=== PATIENT | male | born 1980 | race African-American/Black ===

== ENCOUNTER 2018-03-17 13:59 | Emergency (ER) | payer MEDICAID ==
[~2018-03-17] VITALS: Ht 180.3 cm; Wt 92.5 kg
[2018-03-17] MEDS ORDERED: ONDANSETRON ODT 4 MG ONE (14:37)
[2018-03-17 14:39] LABS: MEAN CORPUSCULAR HEMOGLOBIN 33.5 pg (27.5-34.5); MEAN CORPUSCULAR HGB CONC 33.9 g/dL (33.2-36.2); MEAN CORPUSCULAR VOLUME 98.8 fL (81-97); MEAN PLATELET VOLUME 8.5 fL (7.4-10.4); PLATELET COUNT 210 x10^3/uL (130-400); RED BLOOD COUNT 4.24 x10^6/uL (4.38-5.82); RED CELL DISTRIBUTION WIDTH 13.6 % (9.4-14.8)
[2018-03-17 14:48] LABS: ALBUMIN 3.6 g/dL (3.4-5.0); ANION GAP 6 mmol/L (5-15); CALCIUM 8.4 mg/dL (8.5-10.1); CHLORIDE 106 mmol/L (98-107)
[2018-03-17 14:51] LABS: ALANINE AMINOTRANSFERASE 20 U/L (12-78); ALKALINE PHOSPHATASE 94 U/L (45-117); BILIRUBIN,TOTAL 0.4 mg/dL (0.2-1.0); CREATININE 1.24 mg/dL (0.7-1.3); TOTAL PROTEIN 7.7 g/dL (6.4-8.2)
[2018-03-17 15:00] LABS: BASOPHILS # (AUTO) 0.04 x10^3/uL (0-0.1); BASOPHILS % (AUTO) 1 % (0-1); EOSINOPHILS # (AUTO) 0.15 x10^3/uL (0-0.4); EOSINOPHILS % (AUTO) 2 % (1-7); LYMPHOCYTES # (AUTO) 1.53 x10^3/uL (1-3.4); LYMPHOCYTES % (AUTO) 16 % (22-44); MD SCAN; MONOCYTES # (AUTO) 0.62 x10^3/uL (0.2-0.8); MONOCYTES % (AUTO) 7 % (2-9); NEUTROPHILS # (AUTO) 7.01 x10^3/uL (1.8-6.8); NEUTROPHILS % (AUTO) 75 % (42-75)
[2018-03-17] MEDS ORDERED: ONDANSETRON ODT 4 MG PO ONE (15:00)
[2018-03-17 15:08] LABS: CULTURE INDICATED? NO; MICROSCOPIC NOT IND
[2018-03-17 15:29] VITALS: BP 111/77
== END 2018-03-17 15:31 | disposition home or self-care (01) ==
LOC: ED 14:30
DX: J20.8 Acute bronchitis due to other specified organisms (principal); J45.909 Unspecified asthma, uncomplicated; B34.9 Viral infection, unspecified; J01.00 Acute maxillary sinusitis, unspecified
CPT/HCPCS: 36415; 71045; 80053; 81003; 83690; 85025; 99285; Q0162

== ENCOUNTER 2020-06-23 05:22 | Emergency (ER) | payer MEDICAID ==
[~2020-06-23] VITALS: Ht 180.3 cm; Wt 87.0 kg
[2020-06-23 05:25] VITALS: BP 155/102
[2020-06-23] MEDS ORDERED: NEOSPORIN OINT. PKT 1 PACKET ONE (06:04)
--- NOTE | 2020-06-23 06:41 | NUR ---
Patient/Caregiver given discharge instructions and they have confirmed that they understand the instructions. Patient ambulatory with steady gait.
== END 2020-06-23 06:43 | disposition home or self-care (01) ==
LOC: ED 06:35
DX: S30.811A Abrasion of abdominal wall, initial encounter (principal); J45.909 Unspecified asthma, uncomplicated; X58.XXXA Exposure to other specified factors, initial encounter; Y93.01 Activity, walking, marching and hiking; Y92.488 Other paved roadways as the place of occurrence of the external cause; Y99.8 Other external cause status
CPT/HCPCS: 74018; 99283